=== PATIENT | male | born 1990 | race Caucasian/White ===

== ENCOUNTER 2017-04-30 07:55 | Emergency (ER) | payer BC ==
[~2017-04-30] VITALS: Ht 175.3 cm; Wt 83.0 kg
[2017-04-30] MEDS ORDERED: ketorolac trometh inj. 60 MG/2 ML VIAL IM ONE (08:20)
[2017-04-30] MEDS ORDERED: IBUP-1986 PO (09:04)
[2017-04-30] MEDS ORDERED: CYCL-1 PO (09:05)
[2017-04-30 09:20] VITALS: BP 132/87
== END 2017-04-30 09:31 | disposition home or self-care (01) ==
LOC: ER 07:56
DX: S43.002A Unspecified subluxation of left shoulder joint, initial encounter (principal); Z79.899 Other long term (current) drug therapy; X58.XXXA Exposure to other specified factors, initial encounter; Y93.89 Activity, other specified; Y92.89 Other specified places as the place of occurrence of the external cause; Y99.8 Other external cause status
CPT/HCPCS: 23650; 73030; 96372; 99284; A4565; J1885